=== PATIENT | male | born 1945 | race Caucasian/White ===

== ENCOUNTER 2017-12-21 09:41 | Outpatient (CLI) | payer OTHER ==
[~2017-12-21 09:41] MED LIST: BACTRIM DS TABL1 TAB PO; DIOVAN160 M1; IBUPROFEN800 MG PO; TOPROL XL25 MG; TUSSI PRES-B L120 M1 PO; XANAX1 MG; [UNRECOGNIZED DRUG - OTHER]
== END 2017-12-21 09:45 | disposition home or self-care (01) ==
LOC: NUCLEAR 09:41
DX: I25.111 Atherosclerotic heart disease of native coronary artery with angina pectoris with documented spasm (principal)
CPT/HCPCS: 78452; 93017; A9500; J0153

== ENCOUNTER 2018-06-28 10:18 | Outpatient (CLI) | payer OTHER | END 2018-06-28 10:41 | disposition home or self-care (01) | LOC: RAD 501 10:18 | DX: M77.31 Calcaneal spur, right foot (principal); E78.89 Other lipoprotein metabolism disorders; E03.8 Other specified hypothyroidism; F40.8 Other phobic anxiety disorders; I11.9 Hypertensive heart disease without heart failure; I20.8 Other forms of angina pectoris; I10 Essential (primary) hypertension; M89.9 Disorder of bone, unspecified ==